=== PATIENT | male | born 1990 | race Asian ===

== ENCOUNTER 2017-02-20 10:48 | Emergency (ER) | payer OTHER ==
[~2017-02-20] VITALS: Ht 165.1 cm; Wt 76.2 kg
[2017-02-20 10:54] VITALS: BP 139/79
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
== END 2017-02-20 11:25 ==
LOC: ERH 10:48
DX: S30.1XXA Contusion of abdominal wall, initial encounter (principal); V22 Motorcycle rider injured in collision with two- or three-wheeled motor vehicle; Y93.9 Activity, unspecified; Y92.481 Parking lot as the place of occurrence of the external cause
CPT/HCPCS: 99282